=== PATIENT | female | born 1930 | race African-American/Black ===

== ENCOUNTER 2016-04-13 12:42 | Emergency (ER) | payer MEDICARE, MEDICAID ==
[~2016-04-13 12:42] MED LIST: Iopamidol 370 76% 100 ML VIAL ONE
[2016-04-13] MEDS ORDERED: Morphine Sulfate 2 MG/ML SYRINGE ONE (13:16)
[2016-04-13] MEDS ORDERED: Nitroglycerin 2% Ointment 1 INCH/1 GM Packet ONE ×2 (13:24→14:59)
[2016-04-13] MEDS ORDERED: Furosemide 40 MG/4 ML VIAL ONE (13:46)
[2016-04-13 13:50] LABS: ALT (SGPT) 12 U/L (0-55); AST (SGOT) 13 U/L (5-34); Alkaline Phosphatase 82 U/L (40-150); Anion Gap 11 mmol/L (10-20); BUN (Urea Nitrogen) 22 mg/dL (9.8-20.1); Bilirubin, Total 0.4 mg/dL (0.2-1.2); Calc. Creatinine Clearance 0 mL/min (70-130); Calcium 8.8 mg/dL (7.8-10.44); Carbon Dioxide 32 mmol/L (23-31); Chloride 102 mmol/L (98-107); Estimated GFR-MDRD 55; Globulin 3.3 g/dL (2.4-3.5); Protein, Total 6.8 g/dL (5.8-8.1); Troponin I 0.014 ng/mL (< 0.028)
--- NOTE | 2016-04-13 13:55 | RAD ---
CHEST 1 VIEW: HISTORY: Chest pain. COMPARISON: 02/29/16. FINDINGS: The cardiac silhouette is magnified and enlarged. Pulmonary vasculature remains engorged with bilat eral perihilar and bibasilar infiltrates. Mediastinum is midline with aortic calcification. There is no evidence of pneumothorax. classroom monitor leads overlie the chest. IMPRESSION: Congestive heart failure. POS: [facility]
[2016-04-13 14:00] LABS: #Basophils 0.1 thou/uL (0.0-0.2); #Lymphocytes 0.9 thou/uL (1.20-3.40); #Monocytes 0.5 thou/uL (0.11-0.59); #Neutrophils 6.8 thou/uL (1.40-6.50); %Basophils 0.8 % (0.0-1.0); %Eosinophils 0.1 % (0.0-10.0); %Lymphocytes 10.6 % (21.0-51.0); %Monocytes 5.8 % (0.0-10.0); Anisocytosis SLIGHT = 6-15 cells (100X) (0-5/hpf); Hematocrit 42.3 % (36.0-47.0); Mean Platelet Volume 8.7 fL (7.4-10.4); Red Blood Cell (RBC) Count 5.11 mill/uL (4.20-5.40); White Blood Cell (WBC) Count 8.2 thou/uL (4.8-10.8)
--- NOTE | 2016-04-13 15:31 | CT ---
CT ARTERIOGRAM CHEST WITH IV CONTRAST AND 3D MIP IMAGING HISTORY: Chest and back pain. COMPARISON: 02/29/2016. FINDINGS: There is good contrast opacification of the pulmonary arteries and thoracic aorta with normal branch ing of the great vessels. Calcifications present within the arterial structures. There is mild ate lectasis at each lung base. No lobar consolidation, pleural fluid, or pneumothorax are apparent. IMPRESSION: 1. No CT evidence of pulmonary embolus. 2. Atherosclerosis. POS: [facility]
--- NOTE | 2016-04-13 17:04 | ERRECORD ---
[facility] EMERGENCY RECORD HPI SHORTNESS OF BREATH (13:07 BPIC) CHIEF COMPLAINT: Patient presents for evaluation of shortness of breath, Patient presents for evaluation of chest pain. HISTORIAN: History provided by patient, pt with hx of copd who developed right sided upper flank pain that started 1 week ago after a long coughing episode. this pain has been consistent over the past 5 days, but worsened yesterday and today and is now radiating to the chest. Yesterday she saw her pcp Dr. Tyler who states that this could be a pulled muscle. with the chest pain developing after this doctor visit, she decided to come to the ED. She has also had some increased SOB as well. ROS (13:10 BPIC) CONSTITUTIONAL: Negative constitutional review of systems, Historian denies chills, denies fever. EYES: Negative eye review of systems. ENT: Negative ears, nose, throat review of systems. CARDIOVASCULAR: see hpi. RESPIRATORY: Historian reports cough, reports shortness of breath. GI: Negative gastrointestinal review of systems, Historian denies abdominal pain, denies constipation, denies diarrhea. MUSCULOSKELETAL: right sided muscle tenderness. SKIN: Negative skin review of systems. NEUROLOGIC: Negative neurologic review of systems. ENDOCRINE: Negative endocrine review of systems. HEMO/LYMPHATIC: Normal hematologic/lymphatic system review. PSYCHIATRIC: Negative psychiatric review of systems. NOTES: All other ROS is negative except as listed in HPI. PAST MEDICAL HISTORY MEDICAL HISTORY: Past medical history includes history of diabetes, Type II, Past medical history includes history of hypertension, which has been treated, Past medical history includes history of obesity. (13:12 EPIE) FEMALE SURGICAL HISTORY: Surgical history of orthopedic surgery, BACK AND RIGHT FOOT SX. (13:12 EPIE) SOCIAL HISTORY: Patient denies alcohol use, Patient has no smoking history. (13:12 EPIE) NOTES: I have reviewed and agree with the PMH/PSxH/FamHx/SocHx obtained by the nurse. (13:10 BPIC) KNOWN ALLERGIES Sulfatrim DS: Reaction: Hives CURRENT MEDICATIONS amLODIPine: TABLET : Strength - 2.5 mg : ORAL Patient Dose: 2.5 mg Oral once a day. (13:04 EPIE) &a-1R&a+25V*p+0X*a5204G*c202B*c15G*c2P*p-0X&a-25V&a+1R Name: Jillian Guerra : 1930 F85 MedRec: [id number] AcctNum: [id number] Prepared: MonApr 13, 2016 21:22 by Interface Page 1 of 4 pMD [facility] EMERGENCY RECORD furosemide: TABLET : Strength - 20 mg : ORAL Patient Dose: 20 mg Oral once a day (in the morning).PRN as needed for swelling. (13:04 EPIE) omeprazole: CAPSULE,DELAYED RELEASE (ENTERIC COATED) : Strength - 40 mg : ORAL Patient Dose: 40 mg Oral once a day. (13:04 EPIE) gabapentin: CAPSULE : Strength - 300 mg : ORAL Patient Dose: 900 mg Oral 2 times a day.take every morning and every night. (13:04 EPIE) carvedilol: TABLET : Strength - 6.25 mg : ORAL Patient Dose: 6.25 mg Oral 2 times a day. (13:04 EPIE) Benicar: TABLET : Strength - 20 mg : ORAL Patient Dose: 20 mg Oral once a day.every morning. (13:04 EPIE) diclofenac sodium: TABLET, DELAYED RELEASE (ENTERIC COATED) : Strength - 75 mg : ORAL Patient Dose: 75 mg Oral 2 times a day. (13:05 EPIE) doxycycline hyclate: CAPSULE : Strength - 100 mg : ORAL Patient Dose: 100 mg Oral 2 times a day. (13:06 EPIE) prednisoLONE: TABLET : Strength - 5 mg : ORAL Patient Dose: 20 mg Oral 2 times a day. (13:06 EPIE) aspirin: TABLET : Strength - 81 mg : ORAL Patient Dose: 81 mg Oral once a day. (13:07 EPIE) VITAL SIGNS VITAL SIGNS: Pulse: 69, Resp: 24, O2 sat: 87 on Room Air, Time: 04/13/2016 12:45. (12:45 EPIE) BP: 170/80, Pulse: 60, Resp: 22, Temp: 99.6 (Oral), O2 sat: 93 on 2L Oxygen, Time: 04/13/2016 12:52. (12:52 EPIE) BP: 163/76, Pulse: 63, Resp: 20, Pain: 10, O2 sat: 97 on 2L Oxygen, Time: 04/13/2016 13:05. (13:05 EPIE) BP: 151/67, Pulse: 55, Resp: 19, O2 sat: 100 on 2L Oxygen, Time: 04/13/2016 13:26. (13:26 EPIE) BP: 145/74, Pulse: 56, Resp: 19, O2 sat: 98 on 2L Oxygen, Time: 04/13/2016 13:30. (13:30 EPIE) BP: 163/73, Pulse: 52, Resp: 19, Pain: 7, O2 sat: 99 on 2L Oxygen, Time: 04/13/2016 14:00. (14:00 EPIE) BP: 161/70, Pulse: 50, Resp: 18, O2 sat: 96 on 2L Oxygen, Time: 04/13/2016 15:00. (15:00 EPIE) BP: 132/82, Pulse: 54, Resp: 20, O2 sat: 98 on 2L Oxygen, Time: 04/13/2016 15:30. (15:30 EPIE) BP: 137/74, Pulse: 52, Resp: 20, O2 sat: 96 on 2L Oxygen, Time: 04/13/2016 16:00. (16:00 EPIE) &a-1R&a+25V*p+0X*n2258W*c202B*c15G*c2P*p-0X&a-25V&a+1R Name: Jillian Guerra : 1930 F85 MedRec: [id number] AcctNum: [id number] Prepared: MonApr 13, 2016 21:22 by Interface Page 2 of 4 pMD [facility] EMERGENCY RECORD BP: 138/64, Pulse: 54, Resp: 20, Temp: 98.9 (Oral), O2 sat: 94 on 2L Oxygen, Time: 04/13/2016 16:30. (16:30 EPIE) PHYSICAL EXAM (13:10 BPIC) CONSTITUTIONAL: Vital signs reviewed, Patient appears non toxic, Patient alert and oriented to person, place and time, Pt is in no apparent distress. obese. HEAD: Head exam included findings of head atraumatic, normocephalic. EYES: Eye exam included findings of eyelids normal to inspection, Pupils equally round and reactive to light, Extraocular muscles intact. ENT: Hearing aids noted, otherwise ENT exam normal, Nose exam normal, no nasal deformity, no bleeding from nares, Pharynx exam normal, Mouth exam normal, mucous membranes moist. NECK: Neck exam included findings of normal range of motion, Trachea midline. RESPIRATORY CHEST: Tenderness, moderate, to the right anterior chest, Palpation of chest reproduces symptoms, Respiratory and chest exam normal, Breath sounds clear, No wheezing, No rales, Chest exam included findings of chest movement symmetrical, Chest expansion equal. CARDIOVASCULAR: Cardiovascular exam included findings of heart rate regular rate and rhythm, Heart sounds with, systolic murmur present, grade 3/6. ABDOMEN FEMALE: Abdominal exam included findings of abdomen nontender, Bowel sounds normal, no mass, no pulsatile masses, no peritoneal signs. BACK: Back exam included findings of normal inspection, range of motion normal, no costovertebral angle tenderness. UPPER EXTREMITY: Upper extremity exam included findings of inspection normal, Range of motion normal. LOWER EXTREMITY: Range of motion normal, Edema present, to bilateral lower extremities, pitting, +3, bilateral chronic skin changes to the shins attributed to recurrent cellulitis. NEURO: Neuro exam findings include patient oriented to person, place and time, Speech normal, no focal motor deficits, no focal sensory deficits. SKIN: Skin exam included findings of skin warm, dry, and normal in color. LYMPHATIC: Lymphatic exam normal. PSYCHIATRIC: Psychiatric exam included findings of patient oriented to person place and time, Normal affect. EKG INTERPRETATION (13:18 BPIC) 12 LEAD EKG INTERPRETATION: 12 lead EKG interpreted by Emergency Department Physician at time of study, 12 lead EKG shows normal sinus rhythm, Rate (beats per minute): 66, with no ectopics, Similar to old EKG, Conduction normal, ST segments normal, T waves, &a-1R&a+25V*p+0X*i3796U*c202B*c15G*c2P*p-0X&a-25V&a+1R Name: Jillian Guerra : 1930 F85 MedRec: [id number] AcctNum: [id number] Prepared: MonApr 13, 2016 21:22 by Interface Page 3 of 4 pMD [facility] EMERGENCY RECORD inverted, Leads affected: V1, Leads affected: V2, Leads affected: V3, Other findings include:, left atrial enlargement, Clinical impression:, non-specific EKG. RADIOLOGYINTERPRETATION (13:22 BPIC) CHEST: Films of the chest show, moderate congestive heart failure. MEDICATION ADMINISTRATION SUMMARY Drug Name: furosemide injection, Dose Ordered: 40 mg, Route: IV Push, Status: Given, Time: 13:54 04/13/2016, Drug Name: Nitro-Bid transdermal, Dose Ordered: 1 inch, Route: Topical, Status: Given, Time: 13:28 04/13/2016, Drug Name: morphine injection, Dose Ordered: 2 mg, Route: IV Push, Status: Given, Time: 13:24 04/13/2016, Drug Name: aspirin oral, Dose Ordered: 324 mg, Route: Oral, Status: Given, Time: 13:10 04/13/2016, Detailed record available in Medication Service section. DOCTOR NOTES (16:15 BPIC) TEXT: CHF and hypozia. plan to transfer to [facility] Diagnosis and plan have been discussed with the patient. The patient understands the treatment plan and all questions have been answered. A transfer will be done to a facility that has a higher level of care and additional it web development consultant capabilities. PROBLEM LIST No recorded problems DIAGNOSIS (16:24 BPIC) FINAL: PRIMARY: CHF, ADDITIONAL: hypoxia. PRESCRIPTION No recorded prescriptions DISPOSITION PATIENT: Disposition Type: Transfer, Disposition: [facility], Condition: Guarded. (16:24 BPIC) Patient left the department. (16:56 EPIE) Parker: BPIC=MD Bambi, Paul EPIE=DAVID Schuler, Jaimie &a-1R&a+25V*p+0X*s8369M*c202B*c15G*c2P*p-0X&a-25V&a+1R Name: Jillian Guerra : 1930 F85 MedRec: [id number] AcctNum: [id number] Prepared: MonApr 13, 2016 21:22 by Interface Page 4 of 4 pMD MTDD
--- NOTE | 2016-04-13 17:08 | PICIS ---
[facility] EMERGENCY RECORD TRIAGE (MonApr 13, 2016 12:49 EPIE) TRIAGE NOTES: Pt reports back pain that radiated to chest. Pt also reports SOB. Pt went to the PCP and they said it could either be gas pain or pulled muscle. (MonApr 13, 2016 12:49 EPIE) PATIENT: NAME: Jillian Guerra, AGE: 85, GENDER: female, : Mon1930, TIME OF GREET: MonApr 13, 2016 12:43, PREFERRED LANGUAGE: Bengali, ETHNICITY: Not or , ECODE BILLING MAP: [facility], SSN: [id number], Zip Code: [address], KG WEIGHT: 113.4 (est.), PHONE: , , , PERSON ID: [id number], PCP: MD Tyler Katherine. (MonApr 13, 2016 12:49 EPIE) COMPLAINT: SOB. (MonApr 13, 2016 12:49 EPIE) ADMISSION: URGENCY: 3 Urgent, ADMISSION SOURCE: Home, TRANSPORT: CAR, BED: TRIAGE. (MonApr 13, 2016 12:49 EPIE) TRIAGE SCREENING: Patient denies suicidal ideation, Patient denies presence of domestic violence. (13:12 EPIE) TREATMENTS IN PROGRESS: Treatments given Prehospital: none. (13:12 EPIE) PROVIDERS: TRIAGE NURSE: Jaimie Schuler RN. (MonApr 13, 2016 12:49 EPIE) VITAL SIGNS: Pulse 69, Resp 24, O2 Sat 87, on Room Air, Time 04/13/2016 12:45. (12:45 EPIE) PREVIOUS VISIT ALLERGIES: Sulfatrim DS. (MonApr 13, 2016 12:49 EPIE) Sulfatrim DS. (13:12 EPIE) KNOWN ALLERGIES Sulfatrim DS: Reaction: Hives CURRENT MEDICATIONS amLODIPine: TABLET : Strength - 2.5 mg : ORAL Patient Dose: 2.5 mg Oral once a day. (13:04 EPIE) furosemide: TABLET : Strength - 20 mg : ORAL Patient Dose: 20 mg Oral once a day (in the morning).PRN as needed for swelling. (13:04 EPIE) omeprazole: CAPSULE,DELAYED RELEASE (ENTERIC COATED) : Strength - 40 mg : ORAL Patient Dose: 40 mg Oral once a day. (13:04 EPIE) gabapentin: CAPSULE : Strength - 300 mg : ORAL Patient Dose: 900 mg Oral 2 times a day.take every morning and every night. (13:04 EPIE) carvedilol: TABLET : Strength - 6.25 mg : ORAL Patient Dose: 6.25 mg Oral 2 times a day. (13:04 EPIE) Benicar: TABLET : Strength - 20 mg : ORAL Patient Dose: 20 mg Oral once a day.every morning. (13:04 &a-1R&a+25V*p+0X*p3522L*c202B*c15G*c2P*p-0X&a-25V&a+1R Name: Jillian Guerra : 1930 F85 MedRec: [id number] AcctNum: [id number] Prepared: MonApr 13, 2016 21:29 by Interface Page 1 of 13 pMD [facility] EMERGENCY RECORD EPIE) diclofenac sodium: TABLET, DELAYED RELEASE (ENTERIC COATED) : Strength - 75 mg : ORAL Patient Dose: 75 mg Oral 2 times a day. (13:05 EPIE) doxycycline hyclate: CAPSULE : Strength - 100 mg : ORAL Patient Dose: 100 mg Oral 2 times a day. (13:06 EPIE) prednisoLONE: TABLET : Strength - 5 mg : ORAL Patient Dose: 20 mg Oral 2 times a day. (13:06 EPIE) aspirin: TABLET : Strength - 81 mg : ORAL Patient Dose: 81 mg Oral once a day. (13:07 EPIE) VITAL SIGNS VITAL SIGNS: Pulse: 69, Resp: 24, O2 sat: 87 on Room Air, Time: 04/13/2016 12:45. (12:45 EPIE) BP: 170/80, Pulse: 60, Resp: 22, Temp: 99.6 (Oral), O2 sat: 93 on 2L Oxygen, Time: 04/13/2016 12:52. (12:52 EPIE) BP: 163/76, Pulse: 63, Resp: 20, Pain: 10, O2 sat: 97 on 2L Oxygen, Time: 04/13/2016 13:05. (13:05 EPIE) BP: 151/67, Pulse: 55, Resp: 19, O2 sat: 100 on 2L Oxygen, Time: 04/13/2016 13:26. (13:26 EPIE) BP: 145/74, Pulse: 56, Resp: 19, O2 sat: 98 on 2L Oxygen, Time: 04/13/2016 13:30. (13:30 EPIE) BP: 163/73, Pulse: 52, Resp: 19, Pain: 7, O2 sat: 99 on 2L Oxygen, Time: 04/13/2016 14:00. (14:00 EPIE) BP: 161/70, Pulse: 50, Resp: 18, O2 sat: 96 on 2L Oxygen, Time: 04/13/2016 15:00. (15:00 EPIE) BP: 132/82, Pulse: 54, Resp: 20, O2 sat: 98 on 2L Oxygen, Time: 04/13/2016 15:30. (15:30 EPIE) BP: 137/74, Pulse: 52, Resp: 20, O2 sat: 96 on 2L Oxygen, Time: 04/13/2016 16:00. (16:00 EPIE) BP: 138/64, Pulse: 54, Resp: 20, Temp: 98.9 (Oral), O2 sat: 94 on 2L Oxygen, Time: 04/13/2016 16:30. (16:30 EPIE) NURSING ASSESSMENT: FALL RISK (13:15 EPIE) FALL RISK: Fall risk assessment findings include: no history of falls (0), No bed rest greater than 2 days (0), No use of level of consciousness altering agents with mentation or cognitive changes (0), No change in blood pressure (0), Sensory deficits (1), Impaired mobility (3), No neurologic diagnosis (0), No elimination problems (0), No confusion (0), Total score 4, Fall risk, Notes: Pt is morbidly obese and needs assistance with standing or ambulating. NURSING ASSESSMENT: HEAD-TO-TOE CONSTITUTIONAL: Patient arrives, via hospital wheelchair, Unsteady gait, Assistance to cart, History obtained from patient, Patient appears, Patient cooperative, Patient &a-1R&a+25V*p+0X*o3522W*c202B*c15G*c2P*p-0X&a-25V&a+1R Name: Jillian Guerra Y : 1930 F85 MedRec: [id number] AcctNum: [id number] Prepared: MonApr 13, 2016 21:29 by Interface Page 2 of 13 pMD [facility] EMERGENCY RECORD alert, Oriented to person, place and time, Skin warm, Skin dry, Skin normal in color, Mucous membranes pink, Mucous membranes moist, Patient is well-groomed, Pt reports back pain that radiated to chest. Pt also reports SOB. Pt went to the PCP and they said it could either be gas pain or pulled muscle. Pt reports having a bad cough last and having pain in right side afterwards. (12:56 EPIE) PAIN: sharp pain, Right flank, Onset of pain 04/07/2016, Pain exacerbated by. (12:56 EPIE) SKIN: Skin assessment findings include skin warm, Skin dry, Skin normal in color, Inspection findings include swelling, to lower extremitites, Notes: Discoloration to bilateral lower legs. Pt has healed scar midline lower back. (12:56 EPIE) NEURO: Able to close eyes, Face symmetrical, GCS:, Eye opening: (4) - Spontaneous, Verbal: (5) - Oriented/conversive, Motor: (6) - Obeys commands/Spontaneous, GCS Total: 15. (12:56 EPIE) RESPIRATORY/CHEST: Breath sounds clear, Respiratory assessment findings include respiratory effort easy, Respirations regular, Conversing normally, Neck and chest exam findings include trachea midline, Chest expansion equal, Chest movement symmetrical. (13:12 EPIE) CARDIOVASCULAR: Cardiovascular assessment findings include heart rate normal, Heart sounds, Associated with dyspnea. (12:56 EPIE) ABDOMEN: Abdomen assessment findings include abdomen symmetrical, Abdomen soft. (12:56 EPIE) NURSING PROCEDURE: BEDSIDE RADIOLOGY (13:11 EPIE) BEDSIDE RADIOLOGY: Portable chest x-ray performed. NURSING PROCEDURE: BEDSIDE SIRS TESTING (14:11 EPIE) SCORES: Heart Rate 40-54 (1), Temp range 96.8-101.1 (0), respiratory rate 12-24 (0), Latest WBC 3-14.9 (0), Mental Status altered: no (0), Total SIRS Score 1, Infection or Suspected Infection: No. NURSING PROCEDURE: CARBON ROD INSERTER (12:54 EPIE) CARBON ROD INSERTER: Patient placed on asphalt paving superintendent, Patient placed on non-invasive blood pressure monitor, with disposable blood pressure cuff applied, Patient placed on continuous pulse oximetry, Adult/pediatric oxisensor applied. FOLLOW-UP: After procedure, alarms set and on, After procedure, patient tolerating monitoring. NURSING PROCEDURE: EKG CHART (12:51 EPIE) EK lead EKG performed on the left chest, done by Noemi HERNANDEZ, first EKG. FOLLOW-UP: After procedure, EKG for interpretation given to Dr. Bambi SCHREIBER. &a-1R&a+25V*p+0X*d1797Y*c202B*c15G*c2P*p-0X&a-25V&a+1R Name: Jillian Guerra : 1930 F85 MedRec: [id number] AcctNum: [id number] Prepared: MonApr 13, 2016 21:29 by Interface Page 3 of 13 D [facility] EMERGENCY RECORD NURSING PROCEDURE: INTAKE AND OUTPUT (14:10 EPIE) INTAKE AND OUTPUT: Oral intake(ml): 30, Total Intake (ml): 30ml, Urine output(ml): 2800, Total Output (ml): 2800ml, Grand Total: Output is greater than intake by 2770mls. NURSING PROCEDURE: IV IV SITE 1: IV therapy indicated for hydration, IV therapy indicated for medication administration, IV established, to the right wrist, using a 22 gauge catheter, in one attempt, IV site prepped with Chloraprep, Saline lock established, Flushed with normal saline (mls): 10, Labs drawn at time of placement, labeled in the presence of the patient and sent to lab. (13:07 MSPE) IV established, to the left forearm, using a 20 gauge catheter, in two attempts, IV site prepped with chloroprep, Saline lock established, Flushed with normal saline (mls): 10, Notes: IV started by Noemi HERNANDEZ. (14:20 EPIE) IV SITE 2: IV therapy indicated for hydration, IV therapy indicated for medication administration, IV established, to the left forearm, to high left FA, using a 20 gauge catheter, in two attempts, IV site prepped with Chloraprep, Saline lock established, Flushed with normal saline (mls): 10. (14:22 MSPE) FOLLOW-UP SITE 1: After procedure, no drainage at IV site, After procedure, no swelling at IV site, After procedure, no redness at IV site. (14:20 EPIE) NURSING PROCEDURE: NURSE NOTES NURSES NOTES: Notes: Patient resting with RR even and unlabored. No new complaints at this time. Awaiting lab results and xray. Family asked to be called when results are back. (13:13 EPIE) Notes: Prior to medication administration, pt rated pain level at a 10/10 to right lower rib area. Pt appears to be in no distress. RR even and unlabored. Medication given for comfort. Awaiting results. (13:25 EPIE) Notes: Patient resting with family at bedside. RR even and unlabored. No new complaints at this time. ERMD spoke with family about possible transfer for cardio consult. (13:55 EPIE) Notes: Pt assisted to bedside commode by 2 ER nurses. Pt ambulated well with assistance. Pt voided 400ml of yellow clear urine. NAD. Starting larger bore IV for CTA. Awaiting results for possible transfer. Pt given warm blanket for comfort. (14:11 EPIE) Notes: Pt assisted to bedside commode with Jaimie HERNANDEZ. Pt voided 400ml of straw yellow urine. Pt assisted back to bed. Pt to go to CT soon. (14:30 EPIE) Notes: Upon arrival back from CT, pt was assisted to the bedside commode. NAD. Now awaiting CT results before calling transfer center. (15:01 EPIE) Notes: Patient resting with family at bedside. RR even and unlabored. No new complaints at this time. Attempting transfer to &a-1R&a+25V*p+0X*u2889L*c202B*c15G*c2P*p-0X&a-25V&a+1R Name: Jillian Guerra : 1930 F85 MedRec: [id number] AcctNum: [id number] Prepared: MonApr 13, 2016 21:29 by Interface Page 4 of 13 pMD [facility] EMERGENCY RECORD [facility] at this time. NAD currently. VSS. (15:47 EPIE) Notes: Patient resting with family at bedside. RR even and unlabored. No new complaints at this time. Pt assisted to bedside commode. NAD. Awaiting call back from [facility]. (16:00 EPIE) NURSING PROCEDURE: OXYGEN THERAPY (12:54 EPIE) OXYGEN THERAPY: Prior to procedure, breath sounds clear, Oxygen saturation 87%, by adult/pediatric oxisensor, multiple pulse oximetry reading, Pt wears O2 at home, 2L oxygen given, via nasal cannula applied, Applied by Jaimie RN, via nasal cannula. FOLLOW-UP: After procedure, oxygen saturation 94%. NURSING PROCEDURE: TRANSFER (16:48 EPIE) TRANSFER: Reason for transfer need for specialized care, Diagnosis: CHF, Hypoxia, Accepting institution: [facility], Accepting physician: [place], Referring physician: Bambi, Transported by urgent ambulance, accompanied by emergency medical services personnel, Report called to receiving facility, [place] HERNANDEZ, Provided opportunity to answer questions, Bed assigned er to er, Summary of Care printed, Copy of patient record prepared for receiving facility, Copy of diagnostic studies, Patient consent for transfer signed, Family member contacted. BELONGINGS: Belongings and valuables with patient upon arrival to the Emergency Department include:, Belongings and valuables with patient at time of discharge include:, Belongings remain with patient, Valuables remain with patient. NURSING PROCEDURE: TRANSPORT TO TESTS TRANSPORT TO TESTS: Patient transported to CT scan, via cart, Accompanied by emergency department crown and bridge technician, Accompanied by x-ray crown and bridge technician. (14:39 EPIE) FOLLOW-UP: After procedure, patient returned to emergency department. (14:52 EPIE) ORDER DETAILS Order Name: B type Natriuretic Peptide, Status: Active, Time: 13:02 04/13/2016, User: BPBUSHRA, - Ordered for: MD Lacy Bryan, - Entered by: MD Lacy Bryan - MonApr 13, 2016 13:02, - Quantity: 1, Order Name: Cardiac Profile w/CKMB & Troponin - I, Status: Active, Time: 13:02 04/13/2016, User: JACOBO, - Ordered for: MD Lacy Bryan, - Entered by: MD Lacy Bryan - MonApr 13, 2016 13:02, - Quantity: 1, Order Name: CBC with Differential, Status: Active, Time: 13:02 04/13/2016, User: JACOBO, - Ordered for: MD Lacy Bryan, &a-1R&a+25V*p+0X*x0863W*c202B*c15G*c2P*p-0X&a-25V&a+1R Name: Jillian Guerra : 1930 F85 MedRec: [id number] AcctNum: [id number] Prepared: MonApr 13, 2016 21:29 by Interface Page 5 of 13 [facility] EMERGENCY RECORD - Entered by: MD Lacy Bryan - MonApr 13, 2016 13:02, - Quantity: 1, Order Name: Comprehensive Metabolic Panel, Status: Active, Time: 13:02 04/13/2016, User: BPIC, - Ordered for: MD Lacy Bryan, - Entered by: MD Lacy Bryan - MonApr 13, 2016 13:02, - Quantity: 1, Order Name: CTA Angio Chest W WO Con(PE Protocol), Status: Active, Time: 13:56 04/13/2016, User: BPIC, - Ordered for: MD Lacy Bryan, - Entered by: MD Lacy Bryan - MonApr 13, 2016 13:56, - Quantity: 1, Order Name: D-Dimer (Quantitative), Status: Active, Time: 13:14 04/13/2016, User: BPIC, - Ordered for: MD Lacy Bryan, - Entered by: MD Lacy Bryan - MonApr 13, 2016 13:14, - Quantity: 1, Order Name: EKG 12 Lead in Emergency Room, Status: Active, Time: 13:02 04/13/2016, User: BPIC, - Ordered for: MD Lacy Bryan, - Entered by: MD Lacy Bryan - MonApr 13, 2016 13:02, - Quantity: 1, Order Name: ERRT Oxygen Usage ER, Status: Active, Time: 12:54 04/13/2016, User: EPIE, - Ordered for: MD Lacy Bryan, - Entered by: DAVID Schuler Emily - MonApr 13, 2016 12:54, - Quantity: 1, Order Name: SALINE LOCK, Status: Done, Time: 13:13 04/13/2016, User: EPIE, - Ordered for: MD Lacy Bryan, - Entered by: MD Lacy Bryan - MonApr 13, 2016 13:06, - Quantity: 1, Order Name: XR Chest 1 View Portable, Status: Active, Time: 13:02 04/13/2016, User: [facility], - Ordered for: MD Lacy Bryan, - Entered by: MD Lacy Bryan - MonApr 13, 2016 13:02, - Quantity: 1. MEDICATION ADMINISTRATION SUMMARY Drug Name: furosemide injection, Dose Ordered: 40 mg, Route: IV Push, Status: Given, Time: 13:54 04/13/2016, Drug Name: Nitro-Bid transdermal, Dose Ordered: 1 inch, Route: Topical, Status: Given, Time: 13:28 04/13/2016, Drug Name: morphine injection, Dose Ordered: 2 mg, Route: IV Push, Status: Given, Time: 13:24 04/13/2016, Drug Name: aspirin oral, Dose Ordered: 324 mg, Route: Oral, Status: Given, Time: 13:10 04/13/2016, Detailed record available in Medication Service section. &a-1R&a+25V*p+0X*e9687K*c202B*c15G*c2P*p-0X&a-25V&a+1R Name: Jillian Guerra : 1930 F85 MedRec: [id number] AcctNum: [id number] Prepared: MonApr 13, 2016 21:29 by Interface Page 6 of 13 pMD [facility] EMERGENCY RECORD MEDICATION SERVICE aspirin oral: Order: aspirin oral (aspirin) - Dose: 324 mg : Oral Ordered by: Paul Lacy MD Entered by: Paul Lacy MD MonApr 13, 2016 13:02 Documented as given by: Jaimie Schuler RN MonApr 13, 2016 13:10 Patient, Medication, Dose, Route and Time verified prior to administration. Amount given: 324MG, Site: Medication administered P.O., Correct patient, time, route, dose and medication confirmed prior to administration, Patient advised of actions and side-effects prior to administration, Allergies confirmed and medications reviewed prior to administration. furosemide injection: Order: furosemide injection (furosemide) - Dose: 40 mg : IV Push Ordered by: Paul Lacy MD Entered by: Paul Lacy MD MonApr 13, 2016 13:36 , Acknowledged by: Jaimie Schuler RN MonApr 13, 2016 13:38 Documented as given by: Jaimie Schuler RN MonApr 13, 2016 13:54 Patient, Medication, Dose, Route and Time verified prior to administration. Amount given: 40mg, IV SITE #1 IVP, initial medication, Slowly, Catheter placement confirmed via flush prior to administration, IV site without signs or symptoms of infiltration during medication administration, No swelling during administration, No drainage during administration, IV flushed after administration, Correct patient, time, route, dose and medication confirmed prior to administration, Patient advised of actions and side-effects prior to administration, Allergies confirmed and medications reviewed prior to administration. morphine injection: Order: morphine injection (morphine sulfate) - Dose: 2 mg : IV Push Ordered by: Paul Lacy MD Entered by: Paul Lacy MD MonApr 13, 2016 13:15 , Acknowledged by: Jaimie Schuler RN MonApr 13, 2016 13:16 Documented as given by: Jaimie Schuler RN MonApr 13, 2016 13:24 Patient, Medication, Dose, Route and Time verified prior to administration. Amount given: 2mg, IV SITE #1 IVP, initial medication, Slowly, Awake and alert- acceptable, Catheter placement confirmed via flush prior to administration, IV site without signs or symptoms of infiltration during medication administration, No swelling during administration, No drainage during administration, IV flushed after administration, Correct patient, time, route, dose and medication confirmed prior to administration, Patient advised of actions and side-effects prior to administration, Allergies confirmed and medications reviewed prior to administration. Nitro-Bid transdermal: Order: Nitro-Bid transdermal (nitroglycerin) - Dose: 1 inch : Topical Ordered by: Paul Lacy MD Entered by: Paul Lacy MD MonApr 13, 2016 13:23 , &a-1R&a+25V*p+0X*k8291F*c202B*c15G*c2P*p-0X&a-25V&a+1R Name: Jillian Guerra : 1930 F85 MedRec: [id number] AcctNum: [id number] Prepared: MonApr 13, 2016 21:29 by Interface Page 7 of 13 D ANYA Ann [facility] EMERGENCY RECORD Acknowledged by: Noemi Lara RN MonApr 13, 2016 13:25 Documented as given by: Noemi Lara RN MonApr 13, 2016 13:28 Patient, Medication, Dose, Route and Time verified prior to administration. Medication applied transdermally topically, Amount given: 1", Correct patient, time, route, dose and medication confirmed prior to administration, Patient advised of actions and side-effects prior to administration, Allergies confirmed and medications reviewed prior to administration, Advised not to ambulate without assistance, Patient in position of comfort, Side rails up, Cart in lowest position. HPI SHORTNESS OF BREATH (13:07 BPIC) CHIEF COMPLAINT: Patient presents for evaluation of shortness of breath, Patient presents for evaluation of chest pain. HISTORIAN: History provided by patient, pt with hx of copd who developed right sided upper flank pain that started 1 week ago after a long coughing episode. this pain has been consistent over the past 5 days, but worsened yesterday and today and is now radiating to the chest. Yesterday she saw her pcp Dr. Tyler who states that this could be a pulled muscle. with the chest pain developing after this doctor visit, she decided to come to the ED. She has also had some increased SOB as well. ROS (13:10 BPIC) CONSTITUTIONAL: Negative constitutional review of systems, Historian denies chills, denies fever. EYES: Negative eye review of systems. ENT: Negative ears, nose, throat review of systems. CARDIOVASCULAR: see hpi. RESPIRATORY: Historian reports cough, reports shortness of breath. GI: Negative gastrointestinal review of systems, Historian denies abdominal pain, denies constipation, denies diarrhea. MUSCULOSKELETAL: right sided muscle tenderness. SKIN: Negative skin review of systems. NEUROLOGIC: Negative neurologic review of systems. ENDOCRINE: Negative endocrine review of systems. HEMO/LYMPHATIC: Normal hematologic/lymphatic system review. PSYCHIATRIC: Negative psychiatric review of systems. NOTES: All other ROS is negative except as listed in HPI. PAST MEDICAL HISTORY MEDICAL HISTORY: Past medical history includes history of diabetes, Type II, Past medical history includes history of hypertension, which has been treated, Past medical history includes history of obesity. (13:12 EPIE) FEMALE SURGICAL HISTORY: Surgical history of orthopedic surgery, BACK AND RIGHT FOOT SX. (13:12 EPIE) SOCIAL HISTORY: Patient denies alcohol use, Patient has no &a-1R&a+25V*p+0X*n4797Z*c202B*c15G*c2P*p-0X&a-25V&a+1R Name: Jillian Guerra : 1930 F85 MedRec: [id number] AcctNum: [id number] Prepared: MonApr 13, 2016 21:29 by Interface Page 8 of 13 pMD [facility] EMERGENCY RECORD smoking history. (13:12 EPIE) NOTES: I have reviewed and agree with the PMH/PSxH/FamHx/SocHx obtained by the nurse. (13:10 BPIC) PHYSICAL EXAM (13:10 BPIC) CONSTITUTIONAL: Vital signs reviewed, Patient appears non toxic, Patient alert and oriented to person, place and time, Pt is in no apparent distress. obese. HEAD: Head exam included findings of head atraumatic, normocephalic. EYES: Eye exam included findings of eyelids normal to inspection, Pupils equally round and reactive to light, Extraocular muscles intact. ENT: Hearing aids noted, otherwise ENT exam normal, Nose exam normal, no nasal deformity, no bleeding from nares, Pharynx exam normal, Mouth exam normal, mucous membranes moist. NECK: Neck exam included findings of normal range of motion, Trachea midline. RESPIRATORY CHEST: Tenderness, moderate, to the right anterior chest, Palpation of chest reproduces symptoms, Respiratory and chest exam normal, Breath sounds clear, No wheezing, No rales, Chest exam included findings of chest movement symmetrical, Chest expansion equal. CARDIOVASCULAR: Cardiovascular exam included findings of heart rate regular rate and rhythm, Heart sounds with, systolic murmur present, grade 3/6. ABDOMEN FEMALE: Abdominal exam included findings of abdomen nontender, Bowel sounds normal, no mass, no pulsatile masses, no peritoneal signs. BACK: Back exam included findings of normal inspection, range of motion normal, no costovertebral angle tenderness. UPPER EXTREMITY: Upper extremity exam included findings of inspection normal, Range of motion normal. LOWER EXTREMITY: Range of motion normal, Edema present, to bilateral lower extremities, pitting, +3, bilateral chronic skin changes to the shins attributed to recurrent cellulitis. NEURO: Neuro exam findings include patient oriented to person, place and time, Speech normal, no focal motor deficits, no focal sensory deficits. SKIN: Skin exam included findings of skin warm, dry, and normal in color. LYMPHATIC: Lymphatic exam normal. PSYCHIATRIC: Psychiatric exam included findings of patient oriented to person place and time, Normal affect. EVENTS TRANSFER: Triage to Emergency Triage. (MonApr 13, 2016 12:49 EPIE) Emergency Triage to Emergency Room -03. (12:53 EPIE) &a-1R&a+25V*p+0X*e2579V*c202B*c15G*c2P*p-0X&a-25V&a+1R Name: Jillian Guerra : 1930 F85 MedRec: [id number] AcctNum: [id number] Prepared: MonApr 13, 2016 21:29 by Interface Page 9 of 13 pMD [facility] EMERGENCY RECORD Emergency Emergency Room -03 to -04. (12:53 EPIE) Removed from Emergency Emergency Room -04. (16:56 EPIE) RADIOLOGYINTERPRETATION (13:22 BPIC) CHEST: Films of the chest show, moderate congestive heart failure. EKG INTERPRETATION (13:18 BPIC) 12 LEAD EKG INTERPRETATION: 12 lead EKG interpreted by Emergency Department Physician at time of study, 12 lead EKG shows normal sinus rhythm, Rate (beats per minute): 66, with no ectopics, Similar to old EKG, Conduction normal, ST segments normal, T waves, inverted, Leads affected: V1, Leads affected: V2, Leads affected: V3, Other findings include:, left atrial enlargement, Clinical impression:, non-specific EKG. DOCTOR NOTES (16:15 BPIC) TEXT: CHF and hypozia. plan to transfer to [facility] Diagnosis and plan have been discussed with the patient. The patient understands the treatment plan and all questions have been answered. A transfer will be done to a facility that has a higher level of care and additional telecommunications consultant capabilities. PROBLEM LIST No recorded problems DIAGNOSIS (16:24 BPIC) FINAL: PRIMARY: CHF, ADDITIONAL: hypoxia. DISPOSITION PATIENT: Disposition Type: Transfer, Disposition: [facility], Condition: Guarded. (16:24 BPIC) Patient left the department. (16:56 EPIE) PRESCRIPTION No recorded prescriptions IMAGING *EKG: Image captured from scanner. (14:00 EPIE) CONSENTS: Image captured from scanner. (16:30 EPIE) *MEMORANDUM OF TRANSFER: Image captured from scanner. (16:32 EPIE) *SUPPLY CHARGE SHEET: Image captured from scanner. (16:54 EPIE) ADMIN (21:16 BPIC) DIGITAL SIGNATURE: MD Lcay Bryan. RESULTS RADIOLOGY: XR Chest 1 View Portable Observe DT: MonApr 13, 2016 &a-1R&a+25V*p+0X*o5616G*c202B*c15G*c2P*p-0X&a-25V&a+1R Name: Jillian Guerra : 1930 F85 MedRec: [id number] AcctNum: [id number] Prepared: MonApr 13, 2016 21:29 by Interface Page 10 of 13 pMD [facility] EMERGENCY RECORD 13:03, CXRP CHEST 1 VIEW: HISTORY: Chest pain. COMPARISON: 02/29/16. FINDINGS: The cardiac silhouette is magnified and enlarged. Pulmonary vasculature remains engorged with bilat eral perihilar and bibasilar infiltrates. Mediastinum is midline with aortic calcification. There is no evidence of pneumothorax. 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 IMPRESSION: Congestive heart failure. POS: SHILPA . (14:21 BPIC) CTA Angio Chest W WO Con Observe DT: MonApr 13, 2016 13:57, CTATHX CT ARTERIOGRAM CHEST WITH IV CONTRAST AND 3D MIP IMAGING HISTORY: Chest and back pain. COMPARISON: 02/29/2016. FINDINGS: There is good contrast opacification of the pulmonary arteries and thoracic aorta with normal branch ing of the great vessels. Calcifications present within the arterial structures. There is mild ate lectasis at each lung base. No lobar consolidation, pleural fluid, or pneumothorax are apparent. IMPRESSION: 1. No CT evidence of pulmonary embolus. 2. Atherosclerosis. POS: [facility] . (16:13 BPIC) LABORATORY: D-Dimer (Quantitative) Collection DT: MonApr 13, 2016 13:48, *D-Dimer Test 1.10 - H *mcg/mL, Range (0.27-0.43), * Reference &a-1R&a+25V*p+0X*y3814P*c202B*c15G*c2P*p-0X&a-25V&a+1R Name: Jillian Guerra : 1930 F85 MedRec: [id number] AcctNum: [id number] Prepared: MonApr 13, 2016 21:29 by Interface Page 11 of 13 pMD [facility] EMERGENCY RECORD Range Units: mcg/mL of fibrinogen equivalent, units(FEU) Based upon a retrospective study of [facility] patients in August 2005, a result of Less than 0.44 mcg/mL FEU is, predictive of the absence of a DVT or PE. . (13:55 BPIC) Comprehensive Metabolic Panel Collection DT: MonApr 13, 2016 13:15, Sodium 141 mmol/L, Range (136-145), Potassium 4.3 mmol/L, Range (3.5-5.1), Chloride 102 mmol/L, Range (98-107), *Carbon Dioxide 32 - H mmol/L, Range (23-31), Anion Gap 11 mmol/L, Range (10-20), *BUN (Urea Nitrogen) 22 - H mg/dL, Range (9.8-20.1), *Creatinine 1.14 - H mg/dL, Range (0.6-1.1), Estimated GFR-MDRD 55 , Reference Range for Estimated GFR: Greater than 90, mL/min/1.73 m2 NOTE: The MDRD equation has not been validated for use, with the elderly (over 70 years of age), women, patients with, serious comorbid condition or persons with extremes of body size, muscle, mass, or nutritional status. , *Glucose 141 - H mg/dL, Range (83-110), Calcium 8.8 mg/dL, Range (7.8-10.44), Bilirubin, Total 0.4 mg/dL, Range (0.2-1.2), Protein, Total 6.8 g/dL, Range (5.8-8.1), NOTE: Plasma values are generally 0.3 to 0.5 g/dL higher than serum values, due to the presence of fibrinogen. , Albumin 3.5 g/dL, Range (3.4-4.8), Globulin 3.3 g/dL, Range (2.4-3.5), *Alb/Glob Ratio 1.1 - L g/dL, Range (1.2-2.2), Alkaline Phosphatase 82 U/L, Range (40-150), AST (SGOT) 13 U/L, Range (5-34), ALT (SGPT) 12 U/L, Range (0-55). (13:55 BPIC) Cardiac Profile w/CKMB & TropI Collection DT: MonApr 13, 2016 13:15, CKMB 2.0 ng/mL, Range (0-6.6), Troponin I 0.014 ng/mL, Range (< 0.028), Reference Range , 0.00 - 0.028 ng/mL Negative 0.029 - 0.29 ng/mL , Indeterminate Greater or Equal to 0.3 ng/mL Strongly suggests ME , . (13:55 BPIC) CBC with Differential Collection DT: MonApr 13, 2016 13:15, White Blood Cell (WBC) Count 8.2 thou/uL, Range (4.8-10.8), Red Blood Cell (RBC) Count 5.11 mill/uL, Range (4.20-5.40), Hemoglobin 12.1 g/dL, Range (12.0-16.0), Hematocrit 42.3 %, Range (36.0-47.0), Mean Corpuscular Volume 82.8 fl, Range (81.0-99.0), &a-1R&a+25V*p+0X*z7110H*c202B*c15G*c2P*p-0X&a-25V&a+1R Name: Jillian Guerra : 1930 F85 MedRec: [id number] AcctNum: [id number] Prepared: MonApr 13, 2016 21:29 by Interface Page 12 of 13 pMD [facility] EMERGENCY RECORD *Mean Corpuscular Hemoglobin 23.7 - L pg, Range (27.0-31.0), *Mean Corpuscular HGB CONC 28.6 - L g/dL, Range (32.0-36.0), *RBC Distribution Width 17.7 - H %, Range (11.5-14.5), Platelet Count 222 thou/uL, Range (130-400), Mean Platelet Volume 8.7 fL, Range (7.4-10.4), *%Neutrophils 82.8 - H %, Range (42.0-75.0), *%Lymphocytes 10.6 - L %, Range (21.0-51.0), %Monocytes 5.8 %, Range (0.0-10.0), %Eosinophils 0.1 %, Range (0.0-10.0), %Basophils 0.8 %, Range (0.0-1.0), *#Neutrophils 6.8 - H thou/uL, Range (1.40-6.50), *#Lymphocytes 0.9 - L thou/uL, Range (1.20-3.40), #Monocytes 0.5 thou/uL, Range (0.11-0.59), #Eosinphils 0.0 thou/uL, Range (0.0-0.7), #Basophils 0.1 thou/uL, Range (0.0-0.2), Anisocytosis SLIGHT = 6-15 cells (100X), Range (0-5/hpf), PLT Morphology Comment Appears Adequate . (14:21 BPIC) B type Natriuretic Peptide Collection DT: MonApr 13, 2016 13:15, *B type Natriuretic Peptide 173.5 - H pg/mL, Range (0-100). (14:21 BPIC) Parker: BPIC=MD Bambi, Paul EPIE=DAVID Schuler, Jaimie MSPE=DAVID Lara, Noemi &a-1R&a+25V*p+0X*j7485V*c202B*c15G*c2P*p-0X&a-25V&a+1R Name: Jillian Guerra : 1930 F85 MedRec: [id number] AcctNum: [id number] Prepared: MonApr 13, 2016 21:29 by Interface Page 13 of 13 pMD MTDD
== END 2016-04-13 16:48 | disposition short-term general hospital (02) ==
LOC: NAV ERS 12:42
DX: R09.02 Hypoxemia (principal); I50.9 Heart failure, unspecified; I10 Essential (primary) hypertension; E66.9 Obesity, unspecified
CPT/HCPCS: 36415; 71010; 71275; 80053; 82553; 83880; 84484; 85025; 85379; 93005; 96374; 96375; J1940; J2270

== ENCOUNTER 2016-07-25 16:51 | Outpatient (CLI) | payer MEDICARE, MEDICAID ==
--- NOTE | 2016-07-25 19:23 | RAD ---
LUMBAR SPINE SERIES 4 VIEWS: Date: 07/25/16 HISTORY: Low back pain. FINDINGS: The vertebral bodies are normal in height. Bilateral pedicle screws have been placed at L3, L4, and L5. There is a moderate spondylolisthesis of L4 on L5 of approximately 11-12 mm. There is a minimal retrolisthesis of L2 on L3. The bones appear demineralized. Pedicles are intact. IMPRESSION: Postoperative changes and arthritic changes of the spine. POS: SHILPA
--- NOTE | 2016-07-25 19:26 | RAD ---
THORACIC SPINE SERIES 2 VIEWs: Date: 07/25/16 HISTORY: Back pain x6 months. FINDINGS: The vertebral bodies maintain normal height. There are prominent degenerative osteophytes in the mid and lower thoracic spine with areas of disc narrowing. The pedicles are intact. No acute injury. IMPRESSION: Moderate arthritic changes of the spine. POS: SHILPA
== END 2016-07-25 16:52 | disposition home or self-care (01) ==
LOC: NAV RAD 16:51
PROVIDERS: ATTEND Family Medicine
DX: M54.6 Pain in thoracic spine (principal); M46.94 Unspecified inflammatory spondylopathy, thoracic region; M46.96 Unspecified inflammatory spondylopathy, lumbar region; Z98.890 Other specified postprocedural states
CPT/HCPCS: 72072; 72100

== ENCOUNTER 2017-07-15 16:42 | Emergency (ER) | payer MEDICARE, MEDICAID ==
[2017-07-15] MEDS ORDERED: Ibuprofen 200 MG TAB ONE (17:35)
[2017-07-15 17:36] LABS: #Basophils 0.1 thou/uL (0.0-0.2); #Eosinphils 0.2 thou/uL (0.0-0.7); #Lymphocytes 2.2 thou/uL (1.20-3.40); #Monocytes 0.6 thou/uL (0.11-0.59); #Neutrophils 3.1 thou/uL (1.40-6.50); %Basophils 0.9 % (0.0-1.0); %Eosinophils 3.9 % (0.0-10.0); %Lymphocytes 35.7 % (21.0-51.0); %Neutrophils 49.5 % (42.0-75.0); Hemoglobin 11.9 g/dL (12.0-16.0); Mean Corpuscular HGB CONC 30.1 g/dL (32.0-36.0); Mean Corpuscular Hemoglobin 26.2 pg (27.0-31.0); Mean Platelet Volume 8.8 fL (7.4-10.4); Platelet Count 197 thou/uL (130-400); Red Blood Cell (RBC) Count 4.54 mill/uL (4.20-5.40); White Blood Cell (WBC) Count 6.2 thou/uL (4.8-10.8)
[2017-07-15 17:52] LABS: ALT (SGPT) 14 U/L (8-55); AST (SGOT) 15 U/L (5-34); Albumin 3.4 g/dL (3.4-4.8); Alkaline Phosphatase 82 U/L (40-150); Anion Gap 13 mmol/L (10-20); BUN (Urea Nitrogen) 16 mg/dL (9.8-20.1); Bilirubin, Total 0.3 mg/dL (0.2-1.2); Calc. Creatinine Clearance 0 mL/min (70-130); Calcium 8.9 mg/dL (7.8-10.44); Carbon Dioxide 30 mmol/L (23-31); Chloride 102 mmol/L (98-107); Estimated GFR-MDRD 59; Globulin 3.1 g/dL (2.4-3.5); Glucose 108 mg/dL (83-110); Potassium 3.8 mmol/L (3.5-5.1); Protein, Total 6.5 g/dL (6.0-8.3); Sodium 141 mmol/L (136-145)
[2017-07-15 17:58] LABS: Bilirubin Negative (Negative); Blood, Urine Trace (Negative); Clarity Clear (Clear); Glucose, Urine (Dipstick) Negative (Negative); Leukocyte Small (Negative); Nitrite Negative (Negative); Protein, Urine (Dipstick) Negative (Neg-Trace); Urobilinogen 0.2 mg/dL (0.2-1.0)
--- NOTE | 2017-07-15 18:05 | CT ---
CT OF THE LUMBAR SPINE WITHOUT CONTRAST: 07/15/17 COMPARISON: None. HISTORY: Low back pain. Patient had back surgery years ago. TECHNIQUE: Multiple contiguous axial images were obtained in a CT of the lumbar spine without contrast. Sagittal and coronal reformats were performed. FINDINGS: The patient is status post fusion of L3 through L5 with bilateral pedicle screws. There has also been prior fusion of L5 and S1. No perihardware lucency is seen surrounding any of the indwelling hardwar e. There is grade I retrolisthesis of L5 on S1. The other vertebral bodies demonstrate normal height without evidence of subluxation. Vacuum phenomenon is seen in the lower thoracic spine and at the L2- 3 level. Laminectomies have been performed in the lower lumbosacral spine. There appears to be moderate bilateral bony narrowing of the neural foramina from L1-2 through L5-S1. No obvious ivis narrowing of the central canal is seen. There appears to be a calcification within the uterus which likely represents a calcified fibroid. At herosclerotic calcifications are seen in the aorta. The other prevertebral soft tissues are unremarka ble. 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 POS: SHILPA
[2017-07-15 18:28] LABS: RBC/HPF 0-3 HPF (0-3); Squamous Epithelial 0-3 HPF (0-3)
== END 2017-07-15 18:51 | disposition home or self-care (01) ==
LOC: NAV ERS 16:42
DX: S39.012A Strain of muscle, fascia and tendon of lower back, initial encounter (principal); R60.0 Localized edema; I11.0 Hypertensive heart disease with heart failure; I50.9 Heart failure, unspecified; E11.9 Type 2 diabetes mellitus without complications; E78.5 Hyperlipidemia, unspecified; E66.9 Obesity, unspecified; J44.9 Chronic obstructive pulmonary disease, unspecified; Z87.891 Personal history of nicotine dependence; Z79.82 Long term (current) use of aspirin; Z79.899 Other long term (current) drug therapy; X58.XXXA Exposure to other specified factors, initial encounter
CPT/HCPCS: 72131; 80053; 81003; 81015; 85025; 94760